=== PATIENT | female | born 1950 | race Caucasian/White ===

== ENCOUNTER 2024-09-19 17:34 | Emergency (ER) | payer MEDICARE ==
[2024-09-19] MEDS ORDERED: Boostrix 0.5 ML (Tdap) VIAL (>/=7 yrs of age) ONE (17:55)
[2024-09-19] MEDS ORDERED: Bacitracin 1 PK ONE (17:55)
[2024-09-19] MEDS ORDERED: Lidocaine 1% PF 5 ML VIAL ONE (17:55)
== END 2024-09-19 18:53 | disposition home or self-care (01) ==
LOC: MADERS 17:34
DX: S01.111A Laceration without foreign body of right eyelid and periocular area, initial encounter (principal); S60.222A Contusion of left hand, initial encounter; I10 Essential (primary) hypertension; Z23 Encounter for immunization; W01.0XXA Fall on same level from slipping, tripping and stumbling without subsequent striking against object, initial encounter
CPT/HCPCS: 12011; 90471; 90715